=== PATIENT | male | born 1935 | race African-American/Black ===

== ENCOUNTER 2021-07-03 10:55 | Inpatient (IN) | payer MEDICARE, MEDICAID ==
[2021-07-03 11:43] LABS: #Monocytes 0.3 10x3/uL (0.0-1.1); #Neutrophils 4.8 10x3/uL (1.5-8.4); %Basophils 0.2 % (0.0-2.0); %Lymphocytes 6.3 % (18.0-47.0); %Monocytes 5.4 % (0.0-10.0); %Neutrophils 87.9 % (40.0-75.0); Hemoglobin 12.2 g/dL (13.5-17.5); Mean Corpuscular HGB CONC 33.3 g/dL (32.0-36.0); Mean Corpuscular Hemoglobin 31.6 pg (27.0-33.0); Mean Corpuscular Volume 94.8 fl (81.2-95.1); Mean Platelet Volume 9.6 fl (7.4-10.4); Platelet Count 215 10x3/uL (150-450); RBC Distribution Width 12.6 % (11.5-14.5); Red Blood Cell (RBC) Count 3.86 10x6/uL (4.32-5.72); White Blood Cell (WBC) Count 5.4 10x3/uL (3.5-10.5)
[2021-07-03 11:54] LABS: ALT (SGPT) 10 U/L (8-55); AST (SGOT) 31 U/L (5-34); Albumin 4.3 g/dL (3.4-4.8); Alkaline Phosphatase 77 U/L (40-110); Anion Gap 18 mmol/L (10-20); BUN (Urea Nitrogen) 42 mg/dL (8.4-25.7); Bilirubin, Total 0.9 mg/dL (0.2-1.2); CK (CPK) 781 U/L (30-200); Calc. Creatinine Clearance 0 mL/min (70-130); Calcium 9.9 mg/dL (7.8-10.44); Carbon Dioxide 24 mmol/L (23-31); Chloride 105 mmol/L (98-107); Globulin 4.2 g/dL (2.4-3.5); Glucose 86 mg/dL (83-110); Potassium 3.3 mmol/L (3.5-5.1); Protein, Total 8.5 g/dL (5.8-8.1); Sodium 144 mmol/L (136-145)
[2021-07-03 12:14] LABS: CKMB 23.7 ng/mL (0-6.6)
[2021-07-03] MEDS ORDERED: Aspirin Chewable 81 MG TAB ONE (13:13)
[2021-07-03] MEDS ORDERED: Aspirin 300 MG Suppository ONE (13:26)
[2021-07-03 13:43] LABS: Bilirubin Neg (Negative); Blood, Urine 150 (Negative); Clarity Clear (Clear); Glucose, Urine (Dipstick) Normal (Negative); Ketone, Urine Negative (Negative); Leukocyte 500 (Negative); Nitrite Negative (Negative); Protein, Urine (Dipstick) 30 mg/dl (Neg-Trace); Urobilinogen Normal mg/dL (Less than 2)
[2021-07-03 13:54] LABS: Squamous Epithelial 0-3 HPF (0-3)
[2021-07-03 13:55] LABS: Bacteria/HPF None Seen HPF (None Seen); RBC/HPF 0-3 HPF (0-3)
[2021-07-03] MEDS ORDERED: cefTRIAXone\\ROCEPHIN 2 GM VIAL ONE (14:34)
[2021-07-03 15:07] LABS: SARS-CoV-2 NAA Rapid Test Not Detected (NotDetected)
[2021-07-03] MEDS ORDERED: Acetaminophen 325 MG TAB PO PRN (15:29)
[2021-07-03] MEDS ORDERED: Ondansetron PF 4 MG/2 ML Vial IVP PRN (15:29)
[2021-07-03 15:33] VITALS: BMI 21.4
[2021-07-03] MEDS ORDERED: Electrolyte Replacement Protocol 1 EACH FS SCH (15:45)
[2021-07-03] MEDS ORDERED: Potassium Chloride 20 MEQ TAB PO SCH ×2 (16:00→22:00)
[2021-07-03 16:34] LABS: Troponin I 0.244 ng/mL (< 0.028)
[2021-07-03] MEDS: Sodium Chloride 0.9% 1,000 ML IV SCH (18:01)
[2021-07-03 21:41] LABS: Potassium 3.1 mmol/L (3.5-5.1)
[2021-07-04] MEDS: Sodium Chloride 0.9% 1,000 ML IV SCH ×2 (06:25→18:49)
[2021-07-04 07:19] LABS: #Monocytes 0.5 10x3/uL (0.0-1.1); #Neutrophils 2.9 10x3/uL (1.5-8.4); %Basophils 0.2 % (0.0-2.0); %Eosinophils 0.2 % (0.0-6.0); %Lymphocytes 21.6 % (18.0-47.0); %Neutrophils 66.5 % (40.0-75.0); Hemoglobin 9.5 g/dL (13.5-17.5); Mean Corpuscular HGB CONC 33.7 g/dL (32.0-36.0); Mean Corpuscular Hemoglobin 32.9 pg (27.0-33.0); Mean Corpuscular Volume 97.6 fl (81.2-95.1); Mean Platelet Volume 9.6 fl (7.4-10.4); Platelet Count 162 10x3/uL (150-450); RBC Distribution Width 13.4 % (11.5-14.5); Red Blood Cell (RBC) Count 2.89 10x6/uL (4.32-5.72); White Blood Cell (WBC) Count 4.4 10x3/uL (3.5-10.5)
[2021-07-04 07:39] LABS: Anion Gap 11 mmol/L (10-20); BUN (Urea Nitrogen) 28 mg/dL (8.4-25.7); Calc. Creatinine Clearance 35 mL/min (70-130); Calcium 8.5 mg/dL (7.8-10.44); Carbon Dioxide 25 mmol/L (23-31); Chloride 113 mmol/L (98-107); Glucose 94 mg/dL (83-110); Magnesium 1.8 mg/dL (1.6-2.6); Potassium 3.2 mmol/L (3.5-5.1); Sodium 146 mmol/L (136-145)
[2021-07-04 07:41] LABS: Phosphorus 2.4 mg/dL (2.3-4.7)
[2021-07-04] MEDS ORDERED: Enoxaparin Sodium 30 MG/0.3 ML SYRINGE SC SCH (09:00)
[2021-07-04] MEDS: Aspirin 81 mg Enteric Coated Tablet PO SCH (09:02)
[2021-07-04] MEDS: Potassium Chloride 20 MEQ TAB PO SCH (09:03)
[2021-07-04] MEDS: Amlodipine 10 MG TAB PO SCH (09:05)
[2021-07-04] MEDS: Docusate 100 MG CAP PO SCH ×3 (09:06→22:48)
[2021-07-04] MEDS: Dorzolamide HCl 2% Ophth Soln 10 ml Bottle EA EYE SCH ×3 (11:08→22:51)
[2021-07-04] MEDS ORDERED: Magnesium 2 GM/50 ML 2 GM in Premix Bag 1 BAG IVPB SCH ×2 (13:00→18:45)
[2021-07-04] MEDS ORDERED: Potassium Chloride 20 MEQ TAB PO SCH (13:00)
[2021-07-04] MEDS: Timolol 0.5% Ophth Soln 5 ml Bottle EA EYE SCH ×2 (17:27→22:50)
[2021-07-04] MEDS: cefTRIAXone\\ROCEPHIN 1 GM in Sodium Chloride 0.9% 100 ML IVPB SCH (17:27)
[2021-07-04] MEDS: Terazosin HCl 5 MG CAP PO SCH (22:48)
[2021-07-04] MEDS: Latanoprost 0.005% Ophth Soln 2.5 ml Bottle R EYE SCH (23:00)
[2021-07-05] MEDS: Sodium Chloride 0.9% 1,000 ML IV SCH ×2 (04:55→22:00)
[2021-07-05 05:29] LABS: #Monocytes 0.4 10x3/uL (0.0-1.1); #Neutrophils 1.8 10x3/uL (1.5-8.4); %Basophils 0.8 % (0.0-2.0); %Eosinophils 0.5 % (0.0-6.0); %Monocytes 10.7 % (0.0-10.0); %Neutrophils 45.7 % (40.0-75.0); Hemoglobin 9.8 g/dL (13.5-17.5); Mean Corpuscular HGB CONC 33.6 g/dL (32.0-36.0); Mean Corpuscular Hemoglobin 32.5 pg (27.0-33.0); Mean Corpuscular Volume 96.7 fl (81.2-95.1); Mean Platelet Volume 9.5 fl (7.4-10.4); Platelet Count 135 10x3/uL (150-450); RBC Distribution Width 13.8 % (11.5-14.5); Red Blood Cell (RBC) Count 3.02 10x6/uL (4.32-5.72); White Blood Cell (WBC) Count 3.9 10x3/uL (3.5-10.5)
[2021-07-05 05:41] LABS: Anion Gap 7 mmol/L (10-20); BUN (Urea Nitrogen) 19 mg/dL (8.4-25.7); Calc. Creatinine Clearance 44 mL/min (70-130); Calcium 8.3 mg/dL (7.8-10.44); Carbon Dioxide 24 mmol/L (23-31); Chloride 117 mmol/L (98-107); Glucose 78 mg/dL (83-110); Magnesium 2.1 mg/dL (1.6-2.6); Sodium 144 mmol/L (136-145)
[2021-07-05] MEDS: Aspirin 81 mg Enteric Coated Tablet PO SCH (08:03)
[2021-07-05] MEDS: Amlodipine 10 MG TAB PO SCH (08:03)
[2021-07-05] MEDS: Potassium Chloride 20 MEQ TAB PO SCH (08:03)
[2021-07-05] MEDS: Docusate 100 MG CAP PO SCH ×2 (08:05→22:30)
[2021-07-05] MEDS: Timolol 0.5% Ophth Soln 5 ml Bottle EA EYE SCH ×2 (08:39→23:05)
[2021-07-05] MEDS: Dorzolamide HCl 2% Ophth Soln 10 ml Bottle EA EYE SCH ×3 (08:39→23:10)
[2021-07-05] MEDS ORDERED: Enoxaparin Sodium 40 MG/0.4 ML SYRINGE SC SCH (09:00)
[2021-07-05] MEDS: cefTRIAXone\\ROCEPHIN 1 GM in Sodium Chloride 0.9% 100 ML IVPB SCH (13:19)
[2021-07-05] MEDS ORDERED: Brimonidine Tartrate 0.2% Ophth Soln 5 ml Bottle EA EYE SCH (14:00)
[2021-07-05] MEDS: Terazosin HCl 5 MG CAP PO SCH (22:30)
[2021-07-05] MEDS: Latanoprost 0.005% Ophth Soln 2.5 ml Bottle R EYE SCH (23:00)
[2021-07-06] MEDS: Dorzolamide HCl 2% Ophth Soln 10 ml Bottle EA EYE SCH (08:46)
[2021-07-06] MEDS: Aspirin 81 mg Enteric Coated Tablet PO SCH (08:47)
[2021-07-06] MEDS: Potassium Chloride 20 MEQ TAB PO SCH (08:47)
[2021-07-06] MEDS: Docusate 100 MG CAP PO SCH (08:47)
[2021-07-06] MEDS: Amlodipine 10 MG TAB PO SCH (08:48)
[2021-07-06] MEDS: Timolol 0.5% Ophth Soln 5 ml Bottle EA EYE SCH (08:49)
[2021-07-06 09:51] VITALS: BP 176/81; TEMP 98.3
[2021-07-06] MEDS: Sodium Chloride 0.9% 1,000 ML IV SCH (12:09)
[2021-07-06] MEDS ORDERED: Brimonidine Tartrate 0.2% Ophth Soln 5 ml Bottle EA EYE SCH (14:00)
== END 2021-07-06 12:50 | disposition home or self-care (01) | DRG 689 ==
LOC: CSHERS 10:55 → CSHTELE 14:47
PROVIDERS: ADMIT Internal Medicine; ATTEND Hospitalist
DX: N39.0 Urinary tract infection, site not specified (principal); G92.8 Other toxic encephalopathy; E87.0 Hyperosmolality and hypernatremia; I10 Essential (primary) hypertension; Z20.822 Contact with and (suspected) exposure to COVID-19; N40.0 Benign prostatic hyperplasia without lower urinary tract symptoms; M19.90 Unspecified osteoarthritis, unspecified site; T68.XXXA Hypothermia, initial encounter; R77.8 Other specified abnormalities of plasma proteins; E87.6 Hypokalemia; E83.42 Hypomagnesemia; X31.XXXA Exposure to excessive natural cold, initial encounter
CPT/HCPCS: 36415; 70450; 71045; 80048; 80053; 81003; 81015; 82550; 82553; 83605; 83735; 84100; 84484; 85025; 87040; 87086; 93005; 93010; 94760; 96374; J0696; J1650; J3475; J3490; J7050; U0002

== ENCOUNTER 2021-11-08 13:41 | Emergency (ER) | payer MEDICARE, MEDICAID ==
[2021-11-08 15:12] LABS: #Eosinphils 0.1 10x3/uL (0.0-0.5); #Monocytes 0.4 10x3/uL (0.0-1.1); #Neutrophils 1.7 10x3/uL (1.5-8.4); %Basophils 0.8 % (0.0-2.0); %Eosinophils 2.3 % (0.0-6.0); %Lymphocytes 41.9 % (18.0-47.0); %Monocytes 10.1 % (0.0-10.0); %Neutrophils 44.6 % (40.0-75.0); Hemoglobin 10.4 g/dL (13.5-17.5); Mean Corpuscular Hemoglobin 33.1 pg (27.0-33.0); Mean Corpuscular Volume 97.5 fl (81.2-95.1); Mean Platelet Volume 9.8 fl (7.4-10.4); Platelet Count 186 10x3/uL (150-450); RBC Distribution Width 12.9 % (11.5-14.5); Red Blood Cell (RBC) Count 3.14 10x6/uL (4.32-5.72); White Blood Cell (WBC) Count 3.9 10x3/uL (3.5-10.5)
[2021-11-08 15:27] LABS: ALT (SGPT) 12 U/L (8-55); AST (SGOT) 19 U/L (5-34); Albumin 3.7 g/dL (3.4-4.8); Alkaline Phosphatase 61 U/L (40-110); Anion Gap 12 mmol/L (10-20); BUN (Urea Nitrogen) 8 mg/dL (8.4-25.7); Bilirubin, Total 0.7 mg/dL (0.2-1.2); Calc. Creatinine Clearance 0 mL/min (70-130); Carbon Dioxide 26 mmol/L (23-31); Chloride 106 mmol/L (98-107); Globulin 3.6 g/dL (2.4-3.5); Glucose 103 mg/dL (83-110); Potassium 3.5 mmol/L (3.5-5.1); Protein, Total 7.3 g/dL (5.8-8.1); Sodium 140 mmol/L (136-145)
== END 2021-11-08 17:41 | disposition home or self-care (01) ==
LOC: CSHERS 13:41
DX: R60.0 Localized edema (principal); I10 Essential (primary) hypertension; Z79.899 Other long term (current) drug therapy
CPT/HCPCS: 80053; 83880; 85025; 99284

== ENCOUNTER 2022-01-02 18:47 | Inpatient (IN) | payer MEDICARE, MEDICAID ==
[2022-01-02 19:48] LABS: #Monocytes 0.4 10x3/uL (0.0-1.1); #Neutrophils 1.5 10x3/uL (1.5-8.4); %Basophils 0.7 % (0.0-2.0); %Eosinophils 1.4 % (0.0-6.0); %Lymphocytes 32.7 % (18.0-47.0); %Monocytes 12.3 % (0.0-10.0); %Neutrophils 52.5 % (40.0-75.0); Mean Corpuscular HGB CONC 35.6 g/dL (32.0-36.0); Mean Corpuscular Hemoglobin 33.2 pg (27.0-33.0); Mean Corpuscular Volume 93.4 fl (81.2-95.1); Platelet Count 181 10x3/uL (150-450); RBC Distribution Width 13.3 % (11.5-14.5); Red Blood Cell (RBC) Count 3.61 10x6/uL (4.32-5.72); White Blood Cell (WBC) Count 2.8 10x3/uL (3.5-10.5)
[2022-01-02 19:56] LABS: ALT (SGPT) 12 U/L (8-55); AST (SGOT) 27 U/L (5-34); Albumin 3.9 g/dL (3.4-4.8); Alkaline Phosphatase 45 U/L (40-110); Anion Gap 17 mmol/L (10-20); BUN (Urea Nitrogen) 45 mg/dL (8.4-25.7); Bilirubin, Total 1.7 mg/dL (0.2-1.2); Calc. Creatinine Clearance 0 mL/min (70-130); Calcium 10.2 mg/dL (7.8-10.44); Carbon Dioxide 23 mmol/L (23-31); Chloride 102 mmol/L (98-107); Estimated GFR 21; Globulin 3.8 g/dL (2.4-3.5); Glucose 113 mg/dL (83-110); Lipase 29 U/L (8-78); Magnesium 2.2 mg/dL (1.6-2.6); Potassium 3.5 mmol/L (3.5-5.1); Protein, Total 7.7 g/dL (5.8-8.1); Sodium 138 mmol/L (136-145)
[2022-01-02 20:18] LABS: CKMB 2.7 ng/mL (0-6.6)
[2022-01-02] MEDS ORDERED: Atropine Sulfate 1 mg/10 ml Syringe ONE (20:54)
[2022-01-02] MEDS ORDERED: Aspirin Chewable 81 MG TAB ONE (20:54)
[2022-01-02] MEDS ORDERED: cefTRIAXone\\ROCEPHIN 2 GM VIAL ONE (20:54)
[2022-01-02] MEDS ORDERED: Calcium Carbonate 500 MG ChewTAB PO PRN (21:33)
[2022-01-02] MEDS ORDERED: Acetaminophen 325 MG TAB PO PRN (21:33)
[2022-01-02] MEDS ORDERED: Senokot S 8.6-50 MG TAB PO PRN (21:33)
[2022-01-02] MEDS ORDERED: Ondansetron PF 4 MG/2 ML Vial IVP PRN (21:33)
[2022-01-02] MEDS ORDERED: Tamsulosin HCl 0.4 MG CAP PO SCH (21:45)
[2022-01-02] MEDS ORDERED: Lactated Ringer's 500 ML IV SCH (21:45)
[2022-01-02 22:06] LABS: SARS-CoV-2 NAA Rapid Test Not Detected (NotDetected)
[2022-01-02] MEDS ORDERED: Enoxaparin Sodium 60 MG/0.6 ML SYRINGE SC SCH (23:45)
[2022-01-02] MEDS ORDERED: Enoxaparin Sodium 60 MG/0.6 ML SYRINGE ONE (23:50)
[2022-01-02] MEDS ORDERED: Tamsulosin HCl 0.4 MG CAP ONE (23:52)
[2022-01-03] MEDS: Brimonidine Tartrate 0.2% Ophth Soln 5 ml Bottle EA EYE SCH ×4 (00:16→21:52)
[2022-01-03] MEDS ORDERED: Atropine Sulfate 1 mg/10 ml Syringe ONE (02:05)
[2022-01-03 03:30] LABS: #Eosinphils 0.1 10x3/uL (0.0-0.5); #Monocytes 0.5 10x3/uL (0.0-1.1); #Neutrophils 1.7 10x3/uL (1.5-8.4); %Basophils 0.8 % (0.0-2.0); %Eosinophils 1.5 % (0.0-6.0); %Lymphocytes 40.4 % (18.0-47.0); %Monocytes 12.6 % (0.0-10.0); %Neutrophils 44.4 % (40.0-75.0); Hemoglobin 11.4 g/dL (13.5-17.5); Mean Corpuscular HGB CONC 34.9 g/dL (32.0-36.0); Mean Corpuscular Hemoglobin 33.1 pg (27.0-33.0); Mean Corpuscular Volume 95.1 fl (81.2-95.1); Platelet Count 162 10x3/uL (150-450); RBC Distribution Width 13.5 % (11.5-14.5); Red Blood Cell (RBC) Count 3.44 10x6/uL (4.32-5.72); White Blood Cell (WBC) Count 3.9 10x3/uL (3.5-10.5)
[2022-01-03 03:46] LABS: Anion Gap 12 mmol/L (10-20); BUN (Urea Nitrogen) 40 mg/dL (8.4-25.7); Calc. Creatinine Clearance 0 mL/min (70-130); Calcium 9.4 mg/dL (7.8-10.44); Carbon Dioxide 25 mmol/L (23-31); Cardiac Risk 3.7 (Less than 4.5); Chloride 107 mmol/L (98-107); Cholesterol 143 mg/dl (< 200 Desired); Estimated GFR 28; Glucose 88 mg/dL (83-110); HDL Cholesterol 39 mg/dL (>60 Neg Risk); LDL Cholesterol, Calculated 91 mg/dL; Magnesium 2.1 mg/dL (1.6-2.6); Potassium 3.3 mmol/L (3.5-5.1); Sodium 141 mmol/L (136-145)
[2022-01-03 04:06] LABS: Free T4 (Free Thyroxine) 0.85 ng/dL (0.70-1.48); Thyroid Stimulating Hormone 1.9846 uIU/mL (0.35-4.94)
[2022-01-03 04:14] LABS: CKMB 5.9 ng/mL (0-6.6)
[2022-01-03] MEDS ORDERED: Potassium Chloride 20 MEQ TAB PO SCH (04:15)
[2022-01-03 04:23] LABS: Triglycerides 64 mg/dL (Less than 150)
[2022-01-03] MEDS ORDERED: Potassium Chloride 20 MEQ TAB ONE (04:29)
[2022-01-03] MEDS ORDERED: Lorazepam 0.5 MG TAB ONE (05:09)
[2022-01-03] MEDS ORDERED: Lorazepam 2 MG/ML VIAL ONE (05:11)
[2022-01-03] MEDS: Amlodipine 10 MG TAB PO SCH (09:30)
[2022-01-03] MEDS: Famotidine 20 MG TAB PO SCH (09:30)
[2022-01-03] MEDS: cefTRIAXone\\ROCEPHIN 1 GM in Sodium Chloride 0.9% 100 ML IVPB SCH (09:30)
[2022-01-03] MEDS: Docusate 100 MG CAP PO SCH ×2 (09:30→20:31)
[2022-01-03] MEDS: Aspirin 81 mg Enteric Coated Tablet PO SCH (09:30)
[2022-01-03] MEDS ORDERED: Aspirin Chewable 81 MG TAB ONE (09:33)
[2022-01-03] MEDS ORDERED: Amlodipine 5 MG TAB ONE (09:33)
[2022-01-03] MEDS ORDERED: cefTRIAXone\\ROCEPHIN 1 GM VIAL ONE (09:34)
[2022-01-03] MEDS ORDERED: Famotidine 20 MG TAB ONE (09:39)
[2022-01-03] MEDS: Dorzolamide HCl 2% Ophth Soln 10 ml Bottle EA EYE SCH ×3 (09:50→20:31)
[2022-01-03] MEDS: Lactated Ringer's 1,000 ML IV SCH ×2 (10:10→21:52)
[2022-01-03] MEDS: Multivitamin W/ Minerals 1 TAB PO SCH (10:32)
[2022-01-03 15:46] VITALS: BMI 17.9
[2022-01-03] MEDS: Terazosin HCl 5 MG CAP PO SCH (20:32)
[2022-01-03] MEDS: Tamsulosin HCl 0.4 MG CAP PO SCH (20:32)
[2022-01-03] MEDS: Enoxaparin Sodium 60 MG/0.6 ML SYRINGE SC SCH (20:39)
[2022-01-03] MEDS: Latanoprost 0.005% Ophth Soln 2.5 ml Bottle R EYE SCH (20:43)
[2022-01-04] MEDS: Brimonidine Tartrate 0.2% Ophth Soln 5 ml Bottle EA EYE SCH ×3 (05:55→21:43)
[2022-01-04 08:49] LABS: Hemoglobin 12.2 g/dL (13.5-17.5); Mean Corpuscular HGB CONC 34.5 g/dL (32.0-36.0); Mean Corpuscular Hemoglobin 33.5 pg (27.0-33.0); Mean Corpuscular Volume 97.3 fl (81.2-95.1); Platelet Count 163 10x3/uL (150-450); RBC Distribution Width 13.2 % (11.5-14.5); Red Blood Cell (RBC) Count 3.64 10x6/uL (4.32-5.72)
[2022-01-04 08:56] LABS: Anion Gap 14 mmol/L (10-20); BUN (Urea Nitrogen) 29 mg/dL (8.4-25.7); Calc. Creatinine Clearance 25 mL/min (70-130); Calcium 9.7 mg/dL (7.8-10.44); Carbon Dioxide 23 mmol/L (23-31); Chloride 110 mmol/L (98-107); Estimated GFR 47; Glucose 82 mg/dL (83-110); Potassium 3.5 mmol/L (3.5-5.1); Sodium 143 mmol/L (136-145)
[2022-01-04] MEDS: Dorzolamide HCl 2% Ophth Soln 10 ml Bottle EA EYE SCH ×3 (09:01→21:43)
[2022-01-04] MEDS: cefTRIAXone\\ROCEPHIN 1 GM in Sodium Chloride 0.9% 100 ML IVPB SCH (09:01)
[2022-01-04] MEDS: Docusate 100 MG CAP PO SCH ×3 (09:02→21:39)
[2022-01-04] MEDS: Multivitamin W/ Minerals 1 TAB PO SCH ×2 (09:02→09:32)
[2022-01-04] MEDS: Aspirin 81 mg Enteric Coated Tablet PO SCH ×2 (09:02→09:32)
[2022-01-04] MEDS: Famotidine 20 MG TAB PO SCH ×2 (09:02→09:32)
[2022-01-04] MEDS: Amlodipine 10 MG TAB PO SCH (09:03)
[2022-01-04 16:02] LABS: Bilirubin Neg (Negative); Blood, Urine 250 (Negative); Clarity Clear (Clear); Glucose, Urine (Dipstick) Normal (Negative); Ketone, Urine Negative (Negative); Leukocyte 500 (Negative); Nitrite Negative (Negative); Protein, Urine (Dipstick) 15 mg/dl (Neg-Trace); Urobilinogen Normal mg/dL (Less than 2)
[2022-01-04 16:09] LABS: Urine Culture Reflex No No
[2022-01-04] MEDS: Lactated Ringer's 1,000 ML IV SCH (16:10)
[2022-01-04 16:15] LABS: Bacteria/HPF 1+ HPF (None Seen); RBC/HPF 21-50 HPF (0-3); Squamous Epithelial 0-3 HPF (0-3); WBC/HPF 21-50 HPF (0-3)
[2022-01-04] MEDS: Tamsulosin HCl 0.4 MG CAP PO SCH (21:39)
[2022-01-04] MEDS: Terazosin HCl 5 MG CAP PO SCH (21:40)
[2022-01-04] MEDS: hydrALAZINE 20 MG/ML VIAL SLOW IVP PRN (21:43)
[2022-01-04] MEDS: Latanoprost 0.005% Ophth Soln 2.5 ml Bottle R EYE SCH (21:43)
[2022-01-04] MEDS: Enoxaparin Sodium 60 MG/0.6 ML SYRINGE SC SCH (21:44)
[2022-01-05] MEDS: Lactated Ringer's 1,000 ML IV SCH ×2 (02:10→17:21)
[2022-01-05] MEDS: Brimonidine Tartrate 0.2% Ophth Soln 5 ml Bottle EA EYE SCH ×3 (06:00→22:31)
[2022-01-05 09:20] LABS: #Monocytes 0.5 10x3/uL (0.0-1.1); #Neutrophils 3.9 10x3/uL (1.5-8.4); %Basophils 0.4 % (0.0-2.0); %Eosinophils 0.4 % (0.0-6.0); %Lymphocytes 12.1 % (18.0-47.0); %Monocytes 9.1 % (0.0-10.0); %Neutrophils 77.8 % (40.0-75.0); Hemoglobin 12.6 g/dL (13.5-17.5); Mean Corpuscular HGB CONC 34.9 g/dL (32.0-36.0); Mean Corpuscular Hemoglobin 32.7 pg (27.0-33.0); Mean Corpuscular Volume 93.8 fl (81.2-95.1); Mean Platelet Volume 9.9 fl (7.4-10.4); Platelet Count 178 10x3/uL (150-450); RBC Distribution Width 13.5 % (11.5-14.5); Red Blood Cell (RBC) Count 3.85 10x6/uL (4.32-5.72); White Blood Cell (WBC) Count 5.1 10x3/uL (3.5-10.5)
[2022-01-05 10:01] LABS: Anion Gap 14 mmol/L (10-20); BUN (Urea Nitrogen) 22 mg/dL (8.4-25.7); Calc. Creatinine Clearance 32 mL/min (70-130); Calcium 10.1 mg/dL (7.8-10.44); Carbon Dioxide 24 mmol/L (23-31); Chloride 110 mmol/L (98-107); Estimated GFR 61; Glucose 86 mg/dL (83-110); Potassium 3.3 mmol/L (3.5-5.1); Sodium 145 mmol/L (136-145)
[2022-01-05] MEDS: cefTRIAXone\\ROCEPHIN 1 GM in Sodium Chloride 0.9% 100 ML IVPB SCH (10:04)
[2022-01-05] MEDS: Multivitamin W/ Minerals 1 TAB PO SCH (10:06)
[2022-01-05] MEDS: Docusate 100 MG CAP PO SCH ×2 (10:06→22:38)
[2022-01-05] MEDS: Dorzolamide HCl 2% Ophth Soln 10 ml Bottle EA EYE SCH ×3 (10:06→22:31)
[2022-01-05] MEDS: Famotidine 20 MG TAB PO SCH (10:06)
[2022-01-05] MEDS: Amlodipine 10 MG TAB PO SCH (10:07)
[2022-01-05] MEDS: Aspirin 81 mg Enteric Coated Tablet PO SCH (10:07)
[2022-01-05] MEDS ORDERED: Potassium Chloride 20 MEQ in Premix Bag 1 BAG IVPB SCH (12:00)
[2022-01-05] MEDS: hydrALAZINE 20 MG/ML VIAL SLOW IVP PRN (17:19)
[2022-01-05] MEDS: Enoxaparin Sodium 60 MG/0.6 ML SYRINGE SC SCH (22:30)
[2022-01-05] MEDS: Latanoprost 0.005% Ophth Soln 2.5 ml Bottle R EYE SCH (22:31)
[2022-01-05] MEDS: Tamsulosin HCl 0.4 MG CAP PO SCH (22:38)
[2022-01-05] MEDS: Terazosin HCl 5 MG CAP PO SCH (22:39)
[2022-01-06] MEDS: Lactated Ringer's 1,000 ML IV SCH ×2 (03:30→19:04)
[2022-01-06 05:14] LABS: #Monocytes 0.7 10x3/uL (0.0-1.1); #Neutrophils 4.3 10x3/uL (1.5-8.4); %Basophils 0.5 % (0.0-2.0); %Eosinophils 0.5 % (0.0-6.0); %Lymphocytes 23.3 % (18.0-47.0); %Monocytes 10.1 % (0.0-10.0); %Neutrophils 65.3 % (40.0-75.0); Hemoglobin 13.1 g/dL (13.5-17.5); Mean Corpuscular HGB CONC 34.7 g/dL (32.0-36.0); Mean Corpuscular Hemoglobin 33.8 pg (27.0-33.0); Mean Corpuscular Volume 97.2 fl (81.2-95.1); Mean Platelet Volume 9.9 fl (7.4-10.4); Platelet Count 159 10x3/uL (150-450); RBC Distribution Width 13.6 % (11.5-14.5); Red Blood Cell (RBC) Count 3.88 10x6/uL (4.32-5.72); White Blood Cell (WBC) Count 6.5 10x3/uL (3.5-10.5)
[2022-01-06 05:19] LABS: Anion Gap 18 mmol/L (10-20); BUN (Urea Nitrogen) 22 mg/dL (8.4-25.7); Calc. Creatinine Clearance 29 mL/min (70-130); Calcium 10.7 mg/dL (7.8-10.44); Carbon Dioxide 23 mmol/L (23-31); Chloride 112 mmol/L (98-107); Estimated GFR 56; Glucose 89 mg/dL (83-110); Potassium 4.6 mmol/L (3.5-5.1); Sodium 148 mmol/L (136-145)
[2022-01-06] MEDS ORDERED: Dextrose 50% Abboject 50 ML SYRINGE SLOW IVP PRN (05:28)
[2022-01-06] MEDS: hydrALAZINE 20 MG/ML VIAL SLOW IVP PRN (06:03)
[2022-01-06] MEDS: Thiamine HCl 200 MG/2 ML VIAL SLOW IVP SCH (06:03)
[2022-01-06] MEDS: Brimonidine Tartrate 0.2% Ophth Soln 5 ml Bottle EA EYE SCH ×3 (06:24→22:25)
[2022-01-06] MEDS: cefTRIAXone\\ROCEPHIN 1 GM in Sodium Chloride 0.9% 100 ML IVPB SCH (10:36)
[2022-01-06] MEDS: Aspirin 81 mg Enteric Coated Tablet PO SCH (10:36)
[2022-01-06] MEDS: Docusate 100 MG CAP PO SCH ×2 (10:36→22:23)
[2022-01-06] MEDS: Enalaprilat Dihydrate 1.25 MG/ML VIAL SLOW IVP SCH ×3 (10:38→22:23)
[2022-01-06] MEDS: Amlodipine 10 MG TAB PO SCH (10:39)
[2022-01-06] MEDS: Dorzolamide HCl 2% Ophth Soln 10 ml Bottle EA EYE SCH ×3 (10:39→22:26)
[2022-01-06] MEDS: Enoxaparin Sodium 60 MG/0.6 ML SYRINGE SC SCH ×2 (10:40→22:26)
[2022-01-06] MEDS: Multivitamin W/ Minerals 1 TAB PO SCH (11:30)
[2022-01-06] MEDS: Famotidine 20 MG TAB PO SCH (11:30)
[2022-01-06] MEDS: Tamsulosin HCl 0.4 MG CAP PO SCH (22:23)
[2022-01-06] MEDS: Terazosin HCl 5 MG CAP PO SCH (22:24)
[2022-01-06] MEDS: Latanoprost 0.005% Ophth Soln 2.5 ml Bottle R EYE SCH (22:25)
[2022-01-07] MEDS: Enalaprilat Dihydrate 1.25 MG/ML VIAL SLOW IVP SCH ×2 (03:33→10:23)
[2022-01-07 05:04] LABS: #Monocytes 0.4 10x3/uL (0.0-1.1); #Neutrophils 2.5 10x3/uL (1.5-8.4); %Basophils 0.3 % (0.0-2.0); %Lymphocytes 25.3 % (18.0-47.0); %Monocytes 9.4 % (0.0-10.0); %Neutrophils 63.7 % (40.0-75.0); Hemoglobin 11.2 g/dL (13.5-17.5); Mean Corpuscular HGB CONC 34.5 g/dL (32.0-36.0); Mean Corpuscular Hemoglobin 33.1 pg (27.0-33.0); Mean Corpuscular Volume 96.2 fl (81.2-95.1); Mean Platelet Volume 10.2 fl (7.4-10.4); Platelet Count 129 10x3/uL (150-450); RBC Distribution Width 13.3 % (11.5-14.5); Red Blood Cell (RBC) Count 3.38 10x6/uL (4.32-5.72); White Blood Cell (WBC) Count 3.8 10x3/uL (3.5-10.5)
[2022-01-07 05:07] LABS: Anion Gap 15 mmol/L (10-20); BUN (Urea Nitrogen) 23 mg/dL (8.4-25.7); Calc. Creatinine Clearance 35 mL/min (70-130); Calcium 9.7 mg/dL (7.8-10.44); Carbon Dioxide 21 mmol/L (23-31); Chloride 113 mmol/L (98-107); Estimated GFR 68; Glucose 87 mg/dL (83-110); Potassium 3.5 mmol/L (3.5-5.1); Sodium 145 mmol/L (136-145)
[2022-01-07] MEDS: Lactated Ringer's 1,000 ML IV SCH (06:20)
[2022-01-07] MEDS: Brimonidine Tartrate 0.2% Ophth Soln 5 ml Bottle EA EYE SCH (06:20)
[2022-01-07] MEDS: Thiamine HCl 200 MG/2 ML VIAL SLOW IVP SCH (06:20)
[2022-01-07] MEDS: cefTRIAXone\\ROCEPHIN 1 GM in Sodium Chloride 0.9% 100 ML IVPB SCH (10:07)
[2022-01-07] MEDS: Enoxaparin Sodium 60 MG/0.6 ML SYRINGE SC SCH (10:08)
[2022-01-07] MEDS: Aspirin 81 mg Enteric Coated Tablet PO SCH ×2 (10:18→10:54)
[2022-01-07] MEDS: Multivitamin W/ Minerals 1 TAB PO SCH (10:18)
[2022-01-07] MEDS: Docusate 100 MG CAP PO SCH (10:18)
[2022-01-07] MEDS: Famotidine 20 MG TAB PO SCH (10:19)
[2022-01-07] MEDS: Dorzolamide HCl 2% Ophth Soln 10 ml Bottle EA EYE SCH (10:21)
[2022-01-07] MEDS ORDERED: Aspirin Chewable 81 MG TAB PO SCH (11:00)
[2022-01-07 13:46] VITALS: BP 148/67; TEMP 98.6
[2022-01-08] MEDS ORDERED: Aspirin Chewable 81 MG TAB PO SCH (09:00)
== END 2022-01-07 13:46 | DRG 871 ==
LOC: CSHERS 18:47 → CSHERHOLD 23:19 → CSHIMCU 01-03 14:31 → CSHTELE 01-04 11:37
PROVIDERS: ADMIT Student in an Organized Health Care Education/Training Program; ATTEND Internal Medicine
DX: A41.9 Sepsis, unspecified organism (principal); G93.41 Metabolic encephalopathy; I21.A1 Myocardial infarction type 2; N39.0 Urinary tract infection, site not specified; R64 Cachexia; N17.9 Acute kidney failure, unspecified; E44.0 Moderate protein-calorie malnutrition; Z68.1 Body mass index [BMI] 19.9 or less, adult; Z66 Do not resuscitate; Z20.822 Contact with and (suspected) exposure to COVID-19; I44.0 Atrioventricular block, first degree; N40.0 Benign prostatic hyperplasia without lower urinary tract symptoms; M19.90 Unspecified osteoarthritis, unspecified site; D53.9 Nutritional anemia, unspecified; E86.0 Dehydration; H40.9 Unspecified glaucoma; R68.0 Hypothermia, not associated with low environmental temperature; F01.50 Vascular dementia, unspecified severity, without behavioral disturbance, psychotic disturbance, mood disturbance, and anxiety; E87.6 Hypokalemia; I25.10 Atherosclerotic heart disease of native coronary artery without angina pectoris; N18.9 Chronic kidney disease, unspecified; R13.10 Dysphagia, unspecified; I12.9 Hypertensive chronic kidney disease with stage 1 through stage 4 chronic kidney disease, or unspecified chronic kidney disease; Z79.899 Other long term (current) drug therapy; R62.7 Adult failure to thrive
CPT/HCPCS: 36415; 36416; 70450; 71045; 74176; 76770; 80048; 80053; 80061; 81001; 82553; 82607; 83690; 83735; 83880; 84439; 84443; 84484; 85025; 85027; 87086; 93005; 93306; 94760; 96361; 96365; 96375; 96376; J0360; J0461; J0696; J1650; J2060; J3411; J3480; J3490; J7120; J7999; U0002

== ENCOUNTER 2022-02-24 15:53 | Emergency (ER) | payer MEDICARE, MEDICAID ==
[2022-02-24 17:22] LABS: #Eosinphils 0.1 10x3/uL (0.0-0.5); #Monocytes 0.7 10x3/uL (0.0-1.1); %Basophils 0.6 % (0.0-2.0); %Eosinophils 1.8 % (0.0-6.0); %Monocytes 9.8 % (0.0-10.0); %Neutrophils 59.2 % (40.0-75.0); Hemoglobin 10.5 g/dL (13.5-17.5); Mean Corpuscular HGB CONC 33.2 g/dL (32.0-36.0); Mean Corpuscular Hemoglobin 33.1 pg (27.0-33.0); Mean Corpuscular Volume 99.7 fl (81.2-95.1); Mean Platelet Volume 9.2 fl (7.4-10.4); Platelet Count 194 10x3/uL (150-450); RBC Distribution Width 14.6 % (11.5-14.5); Red Blood Cell (RBC) Count 3.17 10x6/uL (4.32-5.72); White Blood Cell (WBC) Count 6.7 10x3/uL (3.5-10.5)
[2022-02-24 17:40] LABS: ALT (SGPT) 23 U/L (8-55); AST (SGOT) 39 U/L (5-34); Albumin 3.7 g/dL (3.4-4.8); Alkaline Phosphatase 83 U/L (40-110); Anion Gap 12 mmol/L (10-20); BUN (Urea Nitrogen) 21 mg/dL (8.4-25.7); Bilirubin, Total 0.5 mg/dL (0.2-1.2); Calc. Creatinine Clearance 0 mL/min (70-130); Calcium 9.1 mg/dL (7.8-10.44); Carbon Dioxide 30 mmol/L (23-31); Chloride 107 mmol/L (98-107); Estimated GFR 72; Globulin 3.5 g/dL (2.4-3.5); Glucose 85 mg/dL (83-110); Potassium 3.2 mmol/L (3.5-5.1); Protein, Total 7.2 g/dL (5.8-8.1); Sodium 146 mmol/L (136-145)
[2022-02-24] MEDS ORDERED: Potassium Chloride 20 MEQ TAB ONE (19:23)
[2022-02-24] MEDS ORDERED: Haloperidol Lactate 5 MG/ML VIAL ONE (19:23)
== END 2022-02-24 20:48 ==
LOC: CSHERS 15:53
DX: F03.90 Unspecified dementia, unspecified severity, without behavioral disturbance, psychotic disturbance, mood disturbance, and anxiety (principal); I10 Essential (primary) hypertension
CPT/HCPCS: 36415; 80053; 85025; 93005; 93010; 96372; 99285; J1630

== ENCOUNTER 2022-03-14 06:51 | Inpatient (IN) | payer MEDICARE, MEDICAID ==
[2022-03-14] MEDS ORDERED: Ziprasidone 20 MG VIAL ONE (07:20)
[2022-03-14] MEDS ORDERED: Sterile Water 10 ML ONE (07:20)
[2022-03-14] MEDS ORDERED: Diazepam 10 MG/2 ML SYRINGE ONE (07:21)
[2022-03-14 07:43] LABS: #Eosinphils 0.1 10x3/uL (0.0-0.5); #Monocytes 0.8 10x3/uL (0.0-1.1); #Neutrophils 3.7 10x3/uL (1.5-8.4); %Basophils 0.4 % (0.0-2.0); %Eosinophils 1.2 % (0.0-6.0); %Lymphocytes 39.2 % (18.0-47.0); %Monocytes 10.7 % (0.0-10.0); %Neutrophils 48.2 % (40.0-75.0); Hemoglobin 10.7 g/dL (13.5-17.5); Mean Corpuscular HGB CONC 33.1 g/dL (32.0-36.0); Mean Corpuscular Hemoglobin 33.2 pg (27.0-33.0); Mean Corpuscular Volume 100.3 fl (81.2-95.1); Mean Platelet Volume 10.2 fl (7.4-10.4); Platelet Count 246 10x3/uL (150-450); RBC Distribution Width 14.4 % (11.5-14.5); Red Blood Cell (RBC) Count 3.22 10x6/uL (4.32-5.72); White Blood Cell (WBC) Count 7.6 10x3/uL (3.5-10.5)
[2022-03-14 08:07] LABS: ALT (SGPT) 35 U/L (8-55); AST (SGOT) 52 U/L (5-34); Acetaminophen Less than 10.0 mcg/mL (10.0-30.0); Albumin 3.9 g/dL (3.4-4.8); Alcohol Less than 10 mg/dL (Less than 10); Alkaline Phosphatase 81 U/L (40-110); Anion Gap 16 mmol/L (10-20); BUN (Urea Nitrogen) 41 mg/dL (8.4-25.7); CK (CPK) 166 U/L (30-200); Calc. Creatinine Clearance 0 mL/min (70-130); Calcium 9.9 mg/dL (7.8-10.44); Carbon Dioxide 26 mmol/L (23-31); Chloride 107 mmol/L (98-107); Estimated GFR 45; Globulin 4.3 g/dL (2.4-3.5); Glucose 129 mg/dL (83-110); Potassium 4.5 mmol/L (3.5-5.1); Protein, Total 8.2 g/dL (5.8-8.1); Sodium 144 mmol/L (136-145)
[2022-03-14 08:16] LABS: Bilirubin, Total 0.6 mg/dL (0.2-1.2); Salicylate Less than 8.0 mg/dL (15.0-30.0)
[2022-03-14 08:19] LABS: CKMB 5.2 ng/mL (0-6.6)
[2022-03-14] MEDS ORDERED: Ondansetron PF 4 MG/2 ML Vial IVP PRN (09:22)
[2022-03-14] MEDS ORDERED: Acetaminophen 650 MG Suppository PR PRN (09:22)
[2022-03-14] MEDS ORDERED: Aspirin Chewable 81 MG TAB ONE (09:43)
[2022-03-14 09:59] LABS: Troponin I 0.268 ng/mL (< 0.028)
[2022-03-14 10:18] LABS: Magnesium 2.1 mg/dL (1.6-2.6)
[2022-03-14 14:17] LABS: Troponin I 0.267 ng/mL (< 0.028)
[2022-03-14] MEDS ORDERED: diphenhydrAMINE 50 MG in Sodium Chloride 0.9% 50 ML IVPB SCH (16:45)
[2022-03-14] MEDS: Lorazepam 2 MG/ML VIAL SLOW IVP PRN (19:34)
[2022-03-14] MEDS: Atorvastatin Calcium 40 MG TAB PO SCH (19:34)
[2022-03-14] MEDS ORDERED: ceFAZolin (BATCH) 2 GM in Premix Bag 1 BAG IVPB SCH (22:00)
[2022-03-15] MEDS: Lorazepam 2 MG/ML VIAL SLOW IVP PRN ×2 (00:39→20:01)
[2022-03-15 01:21] LABS: SARS-CoV-2 NAA Rapid Test DETECTED (NotDetected)
[2022-03-15 04:25] LABS: #Eosinphils 0.1 10x3/uL (0.0-0.5); #Monocytes 0.5 10x3/uL (0.0-1.1); #Neutrophils 2.3 10x3/uL (1.5-8.4); %Basophils 0.5 % (0.0-2.0); %Eosinophils 2.9 % (0.0-6.0); %Lymphocytes 29.7 % (18.0-47.0); %Monocytes 12.4 % (0.0-10.0); Mean Corpuscular HGB CONC 33.1 g/dL (32.0-36.0); Mean Corpuscular Hemoglobin 32.4 pg (27.0-33.0); Mean Corpuscular Volume 97.6 fl (81.2-95.1); Mean Platelet Volume 10.5 fl (7.4-10.4); Platelet Count 197 10x3/uL (150-450); RBC Distribution Width 13.9 % (11.5-14.5); White Blood Cell (WBC) Count 4.2 10x3/uL (3.5-10.5)
[2022-03-15 04:58] LABS: ALT (SGPT) 27 U/L (8-55); AST (SGOT) 43 U/L (5-34); Alkaline Phosphatase 75 U/L (40-110); Anion Gap 13 mmol/L (10-20); BUN (Urea Nitrogen) 28 mg/dL (8.4-25.7); Bilirubin, Total 0.6 mg/dL (0.2-1.2); Calc. Creatinine Clearance 51 mL/min (70-130); Calcium 9.2 mg/dL (7.8-10.44); Carbon Dioxide 24 mmol/L (23-31); Cardiac Risk 3.2 (Less than 4.5); Chloride 111 mmol/L (98-107); Cholesterol 181 mg/dl (< 200 Desired); Estimated GFR 82; Globulin 3.7 g/dL (2.4-3.5); Glucose 78 mg/dL (83-110); HDL Cholesterol 57 mg/dL (>60 Neg Risk); LDL Cholesterol, Calculated 111 mg/dL; Potassium 3.9 mmol/L (3.5-5.1); Protein, Total 6.7 g/dL (5.8-8.1); Sodium 144 mmol/L (136-145); Triglycerides 67 mg/dL (Less than 150)
[2022-03-15] MEDS: Amlodipine 5 MG TAB PO SCH (08:08)
[2022-03-15] MEDS: Aspirin Chewable 81 MG TAB PO SCH (08:08)
[2022-03-15] MEDS ORDERED: FLU VACC QS2022-23(65YR UP)/PF 240 MCG/0.7 ML SYRINGE IM ONE (09:00)
[2022-03-15] MEDS ORDERED: Enoxaparin Sodium 30 MG/0.3 ML SYRINGE SC SCH (09:00)
[2022-03-15] MEDS ORDERED: Enoxaparin Sodium 40 MG/0.4 ML SYRINGE SC SCH (09:00)
[2022-03-15] MEDS: Atorvastatin Calcium 40 MG TAB PO SCH (19:53)
[2022-03-16 03:32] LABS: #Eosinphils 0.1 10x3/uL (0.0-0.5); #Monocytes 0.4 10x3/uL (0.0-1.1); #Neutrophils 2.3 10x3/uL (1.5-8.4); %Basophils 0.5 % (0.0-2.0); %Eosinophils 1.3 % (0.0-6.0); %Lymphocytes 27.4 % (18.0-47.0); %Monocytes 10.8 % (0.0-10.0); %Neutrophils 59.7 % (40.0-75.0); Hemoglobin 11.6 g/dL (13.5-17.5); Mean Corpuscular HGB CONC 32.9 g/dL (32.0-36.0); Mean Corpuscular Hemoglobin 32.6 pg (27.0-33.0); Mean Corpuscular Volume 99.2 fl (81.2-95.1); Mean Platelet Volume 10.1 fl (7.4-10.4); Platelet Count 215 10x3/uL (150-450); RBC Distribution Width 13.7 % (11.5-14.5); Red Blood Cell (RBC) Count 3.56 10x6/uL (4.32-5.72); White Blood Cell (WBC) Count 3.8 10x3/uL (3.5-10.5)
[2022-03-16 03:53] LABS: ALT (SGPT) 25 U/L (8-55); AST (SGOT) 34 U/L (5-34); Albumin 3.1 g/dL (3.4-4.8); Alkaline Phosphatase 75 U/L (40-110); Anion Gap 9 mmol/L (10-20); BUN (Urea Nitrogen) 23 mg/dL (8.4-25.7); Bilirubin, Total 0.5 mg/dL (0.2-1.2); Calc. Creatinine Clearance 55 mL/min (70-130); Calcium 9.8 mg/dL (7.8-10.44); Carbon Dioxide 29 mmol/L (23-31); Chloride 108 mmol/L (98-107); Estimated GFR 85; Globulin 3.8 g/dL (2.4-3.5); Glucose 66 mg/dL (83-110); Potassium 4.2 mmol/L (3.5-5.1); Protein, Total 6.9 g/dL (5.8-8.1); Sodium 142 mmol/L (136-145)
[2022-03-16] MEDS: Aspirin Chewable 81 MG TAB PO SCH ×2 (08:38→09:13)
[2022-03-16] MEDS: Amlodipine 5 MG TAB PO SCH ×2 (08:38→09:13)
[2022-03-16] MEDS: Enoxaparin Sodium 40 MG/0.4 ML SYRINGE SC SCH (08:38)
[2022-03-16] MEDS: Atorvastatin Calcium 40 MG TAB PO SCH (21:57)
[2022-03-17 10:17] LABS: #Eosinphils 0.1 10x3/uL (0.0-0.5); #Monocytes 0.6 10x3/uL (0.0-1.1); #Neutrophils 2.4 10x3/uL (1.5-8.4); %Basophils 0.7 % (0.0-2.0); %Eosinophils 1.8 % (0.0-6.0); %Lymphocytes 29.5 % (18.0-47.0); %Monocytes 13.6 % (0.0-10.0); %Neutrophils 54.2 % (40.0-75.0); Hemoglobin 10.9 g/dL (13.5-17.5); Mean Corpuscular HGB CONC 33.3 g/dL (32.0-36.0); Mean Corpuscular Hemoglobin 32.8 pg (27.0-33.0); Mean Corpuscular Volume 98.5 fl (81.2-95.1); Mean Platelet Volume 10.2 fl (7.4-10.4); Platelet Count 221 10x3/uL (150-450); RBC Distribution Width 13.6 % (11.5-14.5); Red Blood Cell (RBC) Count 3.32 10x6/uL (4.32-5.72); White Blood Cell (WBC) Count 4.3 10x3/uL (3.5-10.5)
[2022-03-17 10:29] LABS: ALT (SGPT) 18 U/L (8-55); AST (SGOT) 34 U/L (5-34); Albumin 3.2 g/dL (3.4-4.8); Alkaline Phosphatase 81 U/L (40-110); Anion Gap 12 mmol/L (10-20); BUN (Urea Nitrogen) 18 mg/dL (8.4-25.7); Bilirubin, Total 0.5 mg/dL (0.2-1.2); Calc. Creatinine Clearance 50 mL/min (70-130); Calcium 10.1 mg/dL (7.8-10.44); Carbon Dioxide 29 mmol/L (23-31); Chloride 110 mmol/L (98-107); Estimated GFR 81; Globulin 3.8 g/dL (2.4-3.5); Glucose 77 mg/dL (83-110); Potassium 4.9 mmol/L (3.5-5.1); Sodium 146 mmol/L (136-145)
[2022-03-17] MEDS: Aspirin Chewable 81 MG TAB PO SCH (10:43)
[2022-03-17] MEDS: Enoxaparin Sodium 40 MG/0.4 ML SYRINGE SC SCH (10:43)
[2022-03-17] MEDS: Amlodipine 5 MG TAB PO SCH (10:45)
[2022-03-17] MEDS: Lorazepam 2 MG/ML VIAL SLOW IVP PRN (20:00)
[2022-03-17] MEDS: Atorvastatin Calcium 40 MG TAB PO SCH (22:00)
[2022-03-18 07:42] LABS: Hemoglobin 11.7 g/dL (13.5-17.5); Mean Corpuscular HGB CONC 34.5 g/dL (32.0-36.0); Mean Corpuscular Hemoglobin 33.1 pg (27.0-33.0); Mean Corpuscular Volume 95.8 fl (81.2-95.1); Mean Platelet Volume 10.5 fl (7.4-10.4); Platelet Count 171 10x3/uL (150-450); RBC Distribution Width 13.6 % (11.5-14.5); Red Blood Cell (RBC) Count 3.54 10x6/uL (4.32-5.72); White Blood Cell (WBC) Count 4.4 10x3/uL (3.5-10.5)
[2022-03-18 07:44] LABS: MDiff Complete? YES
[2022-03-18 08:38] LABS: Eosinophils 3 % (0-10); Lymphocytes 39 % (21-51); Monocytes 11 % (0-10); Neutrophil 47 % (42-75); Platelet Morphology Comment Appears Adequate
[2022-03-18 08:39] LABS: RBC Morphology Normal
[2022-03-18] MEDS: Aspirin Chewable 81 MG TAB PO SCH (09:56)
[2022-03-18] MEDS: Amlodipine 5 MG TAB PO SCH (09:56)
[2022-03-18] MEDS: Enoxaparin Sodium 40 MG/0.4 ML SYRINGE SC SCH (09:56)
[2022-03-18 12:42] LABS: ALT (SGPT) 18 U/L (8-55); AST (SGOT) 39 U/L (5-34); Albumin 3.3 g/dL (3.4-4.8); Alkaline Phosphatase 84 U/L (40-110); Anion Gap 15 mmol/L (10-20); BUN (Urea Nitrogen) 14 mg/dL (8.4-25.7); Bilirubin, Total 0.5 mg/dL (0.2-1.2); Calc. Creatinine Clearance 55 mL/min (70-130); Calcium 9.6 mg/dL (7.8-10.44); Carbon Dioxide 25 mmol/L (23-31); Chloride 110 mmol/L (98-107); Estimated GFR 85; Globulin 3.5 g/dL (2.4-3.5); Glucose 75 mg/dL (83-110); Potassium 4.5 mmol/L (3.5-5.1); Protein, Total 6.8 g/dL (5.8-8.1); Sodium 145 mmol/L (136-145)
[2022-03-18] MEDS: Atorvastatin Calcium 40 MG TAB PO SCH (23:02)
[2022-03-19 04:38] LABS: #Monocytes 0.5 10x3/uL (0.0-1.1); #Neutrophils 6.3 10x3/uL (1.5-8.4); %Basophils 0.3 % (0.0-2.0); %Eosinophils 0.4 % (0.0-6.0); %Lymphocytes 11.7 % (18.0-47.0); %Monocytes 6.2 % (0.0-10.0); %Neutrophils 81.1 % (40.0-75.0); Hemoglobin 11.3 g/dL (13.5-17.5); Mean Corpuscular HGB CONC 34.2 g/dL (32.0-36.0); Mean Corpuscular Hemoglobin 33.1 pg (27.0-33.0); Mean Corpuscular Volume 96.8 fl (81.2-95.1); Mean Platelet Volume 10.1 fl (7.4-10.4); Platelet Count 197 10x3/uL (150-450); RBC Distribution Width 13.5 % (11.5-14.5); Red Blood Cell (RBC) Count 3.41 10x6/uL (4.32-5.72); White Blood Cell (WBC) Count 7.8 10x3/uL (3.5-10.5)
[2022-03-19 04:48] LABS: ALT (SGPT) 23 U/L (8-55); AST (SGOT) 50 U/L (5-34); Albumin 3.4 g/dL (3.4-4.8); Alkaline Phosphatase 86 U/L (40-110); Anion Gap 13 mmol/L (10-20); BUN (Urea Nitrogen) 12 mg/dL (8.4-25.7); Bilirubin, Total 0.5 mg/dL (0.2-1.2); Calc. Creatinine Clearance 56 mL/min (70-130); Calcium 10.1 mg/dL (7.8-10.44); Carbon Dioxide 25 mmol/L (23-31); Chloride 108 mmol/L (98-107); Estimated GFR 86; Globulin 4.1 g/dL (2.4-3.5); Glucose 79 mg/dL (83-110); Protein, Total 7.5 g/dL (5.8-8.1); Sodium 142 mmol/L (136-145)
[2022-03-19] MEDS: Aspirin Chewable 81 MG TAB PO SCH (10:04)
[2022-03-19] MEDS: Enoxaparin Sodium 40 MG/0.4 ML SYRINGE SC SCH (10:04)
[2022-03-19] MEDS: Amlodipine 5 MG TAB PO SCH (10:05)
[2022-03-19] MEDS ORDERED: hydrALAZINE 25 MG TAB PO SCH (15:00)
[2022-03-19] MEDS: Dorzolamide HCl 2% Ophth Soln 10 ml Bottle EA EYE SCH (15:22)
[2022-03-19] MEDS: Brimonidine Tartrate 0.2% Ophth Soln 5 ml Bottle EA EYE SCH (15:22)
[2022-03-19] MEDS: Ferrous Sulfate 325 MG TAB PO SCH (17:35)
[2022-03-20] MEDS: Atorvastatin Calcium 40 MG TAB PO SCH ×2 (02:38→21:35)
[2022-03-20] MEDS: Brimonidine Tartrate 0.2% Ophth Soln 5 ml Bottle EA EYE SCH ×4 (02:38→21:35)
[2022-03-20] MEDS: Divalproex Sodium 125 mg Sprinkle Capsule PO SCH ×3 (02:40→21:34)
[2022-03-20] MEDS: Dorzolamide HCl 2% Ophth Soln 10 ml Bottle EA EYE SCH ×4 (02:40→21:35)
[2022-03-20] MEDS: Terazosin HCl 5 MG CAP PO SCH ×2 (02:41→21:35)
[2022-03-20] MEDS: Timolol 0.5% Ophth Soln 5 ml Bottle EA EYE SCH ×3 (02:50→21:36)
[2022-03-20] MEDS: Docusate 100 MG CAP PO SCH ×3 (02:51→21:52)
[2022-03-20 06:36] LABS: #Eosinphils 0.1 10x3/uL (0.0-0.5); #Monocytes 0.5 10x3/uL (0.0-1.1); #Neutrophils 2.7 10x3/uL (1.5-8.4); %Basophils 0.4 % (0.0-2.0); %Eosinophils 1.2 % (0.0-6.0); %Lymphocytes 31.8 % (18.0-47.0); %Monocytes 10.7 % (0.0-10.0); %Neutrophils 55.7 % (40.0-75.0); Hemoglobin 10.6 g/dL (13.5-17.5); Mean Corpuscular Hemoglobin 32.7 pg (27.0-33.0); Mean Corpuscular Volume 96.3 fl (81.2-95.1); Mean Platelet Volume 10.6 fl (7.4-10.4); Platelet Count 203 10x3/uL (150-450); RBC Distribution Width 13.7 % (11.5-14.5); Red Blood Cell (RBC) Count 3.24 10x6/uL (4.32-5.72); White Blood Cell (WBC) Count 4.9 10x3/uL (3.5-10.5)
[2022-03-20 06:57] LABS: ALT (SGPT) 22 U/L (8-55); AST (SGOT) 41 U/L (5-34); Albumin 3.3 g/dL (3.4-4.8); Alkaline Phosphatase 88 U/L (40-110); Anion Gap 15 mmol/L (10-20); BUN (Urea Nitrogen) 12 mg/dL (8.4-25.7); Bilirubin, Total 0.6 mg/dL (0.2-1.2); CK (CPK) 160 U/L (30-200); Calc. Creatinine Clearance 46 mL/min (70-130); Calcium 9.7 mg/dL (7.8-10.44); Carbon Dioxide 26 mmol/L (23-31); Chloride 109 mmol/L (98-107); Estimated GFR 72; Globulin 3.9 g/dL (2.4-3.5); Glucose 69 mg/dL (83-110); Magnesium 1.6 mg/dL (1.6-2.6); Potassium 3.9 mmol/L (3.5-5.1); Protein, Total 7.2 g/dL (5.8-8.1); Sodium 146 mmol/L (136-145)
[2022-03-20] MEDS ORDERED: Potassium Chloride 10 MEQ TAB PO SCH (08:00)
[2022-03-20] MEDS: Amlodipine 5 MG TAB PO SCH (08:25)
[2022-03-20] MEDS: Aspirin Chewable 81 MG TAB PO SCH (08:30)
[2022-03-20] MEDS: Ferrous Sulfate 325 MG TAB PO SCH ×2 (08:30→16:48)
[2022-03-20] MEDS: Enoxaparin Sodium 40 MG/0.4 ML SYRINGE SC SCH (08:31)
[2022-03-20] MEDS ORDERED: Losartan Potassium 50 MG TAB PO SCH (09:00)
[2022-03-20] MEDS ORDERED: HYDROCHLOROTHIAZIDE 50 MG PO SCH (09:00)
[2022-03-20] MEDS ORDERED: Furosemide 20 MG TAB PO SCH (09:00)
[2022-03-21 05:32] LABS: #Monocytes 0.6 10x3/uL (0.0-1.1); #Neutrophils 6.8 10x3/uL (1.5-8.4); %Basophils 0.3 % (0.0-2.0); %Eosinophils 0.2 % (0.0-6.0); %Lymphocytes 17.3 % (18.0-47.0); %Monocytes 6.8 % (0.0-10.0); %Neutrophils 75.2 % (40.0-75.0); Mean Corpuscular HGB CONC 33.8 g/dL (32.0-36.0); Mean Corpuscular Hemoglobin 32.8 pg (27.0-33.0); Mean Platelet Volume 10.2 fl (7.4-10.4); Platelet Count 206 10x3/uL (150-450); RBC Distribution Width 13.6 % (11.5-14.5); Red Blood Cell (RBC) Count 3.35 10x6/uL (4.32-5.72); White Blood Cell (WBC) Count 9.1 10x3/uL (3.5-10.5)
[2022-03-21 05:55] LABS: ALT (SGPT) 21 U/L (8-55); AST (SGOT) 43 U/L (5-34); Albumin 3.3 g/dL (3.4-4.8); Alkaline Phosphatase 88 U/L (40-110); Anion Gap 15 mmol/L (10-20); BUN (Urea Nitrogen) 14 mg/dL (8.4-25.7); Bilirubin, Total 0.8 mg/dL (0.2-1.2); Calc. Creatinine Clearance 35 mL/min (70-130); Calcium 10.1 mg/dL (7.8-10.44); Carbon Dioxide 26 mmol/L (23-31); Chloride 110 mmol/L (98-107); Estimated GFR 53; Globulin 4.1 g/dL (2.4-3.5); Glucose 127 mg/dL (83-110); Magnesium 1.7 mg/dL (1.6-2.6); Potassium 4.8 mmol/L (3.5-5.1); Protein, Total 7.4 g/dL (5.8-8.1); Sodium 146 mmol/L (136-145)
[2022-03-21] MEDS: Lactated Ringer's 1,000 ML IV SCH (06:46)
[2022-03-21] MEDS: Enoxaparin Sodium 40 MG/0.4 ML SYRINGE SC SCH (10:09)
[2022-03-21] MEDS: Amlodipine 5 MG TAB PO SCH (10:09)
[2022-03-21] MEDS: Aspirin Chewable 81 MG TAB PO SCH (10:09)
[2022-03-21] MEDS: Docusate 100 MG CAP PO SCH ×2 (10:10→21:53)
[2022-03-21] MEDS: Ferrous Sulfate 325 MG TAB PO SCH ×2 (10:10→17:50)
[2022-03-21] MEDS: Brimonidine Tartrate 0.2% Ophth Soln 5 ml Bottle EA EYE SCH ×3 (10:11→21:50)
[2022-03-21] MEDS: Dorzolamide HCl 2% Ophth Soln 10 ml Bottle EA EYE SCH ×3 (10:11→21:50)
[2022-03-21] MEDS: Timolol 0.5% Ophth Soln 5 ml Bottle EA EYE SCH (10:11)
[2022-03-21] MEDS: Divalproex Sodium 125 mg Sprinkle Capsule PO SCH ×2 (12:04→21:50)
[2022-03-21] MEDS: Atorvastatin Calcium 40 MG TAB PO SCH (21:52)
[2022-03-21] MEDS: Terazosin HCl 5 MG CAP PO SCH (21:53)
[2022-03-22] MEDS: Timolol 0.5% Ophth Soln 5 ml Bottle EA EYE SCH ×3 (01:09→21:37)
[2022-03-22] MEDS: Lactated Ringer's 1,000 ML IV SCH (05:50)
[2022-03-22] MEDS: Ferrous Sulfate 325 MG TAB PO SCH ×2 (09:45→19:53)
[2022-03-22] MEDS: Brimonidine Tartrate 0.2% Ophth Soln 5 ml Bottle EA EYE SCH ×3 (09:47→21:36)
[2022-03-22] MEDS: Enoxaparin Sodium 40 MG/0.4 ML SYRINGE SC SCH (09:47)
[2022-03-22] MEDS: Dorzolamide HCl 2% Ophth Soln 10 ml Bottle EA EYE SCH ×3 (09:47→21:37)
[2022-03-22] MEDS: Docusate 100 MG CAP PO SCH ×2 (09:47→21:37)
[2022-03-22] MEDS: Amlodipine 5 MG TAB PO SCH (09:47)
[2022-03-22] MEDS: Aspirin Chewable 81 MG TAB PO SCH (09:47)
[2022-03-22] MEDS: Divalproex Sodium 125 mg Sprinkle Capsule PO SCH ×2 (09:47→21:37)
[2022-03-22 13:37] LABS: #Eosinphils 0.1 10x3/uL (0.0-0.5); #Monocytes 0.4 10x3/uL (0.0-1.1); #Neutrophils 2.5 10x3/uL (1.5-8.4); %Basophils 0.5 % (0.0-2.0); %Eosinophils 3.2 % (0.0-6.0); %Lymphocytes 27.3 % (18.0-47.0); %Neutrophils 59.8 % (40.0-75.0); Hemoglobin 10.2 g/dL (13.5-17.5); Mean Corpuscular HGB CONC 33.4 g/dL (32.0-36.0); Mean Corpuscular Volume 98.7 fl (81.2-95.1); Mean Platelet Volume 10.5 fl (7.4-10.4); Platelet Count 170 10x3/uL (150-450); RBC Distribution Width 13.5 % (11.5-14.5); Red Blood Cell (RBC) Count 3.09 10x6/uL (4.32-5.72); White Blood Cell (WBC) Count 4.1 10x3/uL (3.5-10.5)
[2022-03-22 13:59] LABS: ALT (SGPT) 18 U/L (8-55); AST (SGOT) 36 U/L (5-34); Alkaline Phosphatase 79 U/L (40-110); Anion Gap 12 mmol/L (10-20); BUN (Urea Nitrogen) 16 mg/dL (8.4-25.7); Bilirubin, Total 0.5 mg/dL (0.2-1.2); Calc. Creatinine Clearance 52 mL/min (70-130); Calcium 9.7 mg/dL (7.8-10.44); Carbon Dioxide 28 mmol/L (23-31); Chloride 110 mmol/L (98-107); Estimated GFR 83; Globulin 3.8 g/dL (2.4-3.5); Glucose 124 mg/dL (83-110); Magnesium 1.8 mg/dL (1.6-2.6); Potassium 4.5 mmol/L (3.5-5.1); Protein, Total 6.8 g/dL (5.8-8.1); Sodium 145 mmol/L (136-145)
[2022-03-22] MEDS: Atorvastatin Calcium 40 MG TAB PO SCH (21:36)
[2022-03-22] MEDS: Terazosin HCl 5 MG CAP PO SCH (21:37)
[2022-03-23 06:29] LABS: #Eosinphils 0.1 10x3/uL (0.0-0.5); #Monocytes 0.4 10x3/uL (0.0-1.1); #Neutrophils 2.7 10x3/uL (1.5-8.4); %Basophils 0.4 % (0.0-2.0); %Eosinophils 2.3 % (0.0-6.0); %Lymphocytes 31.3 % (18.0-47.0); %Monocytes 9.2 % (0.0-10.0); %Neutrophils 56.6 % (40.0-75.0); Hemoglobin 10.9 g/dL (13.5-17.5); Mean Corpuscular HGB CONC 33.7 g/dL (32.0-36.0); Mean Corpuscular Hemoglobin 32.8 pg (27.0-33.0); Mean Corpuscular Volume 97.3 fl (81.2-95.1); Mean Platelet Volume 10.2 fl (7.4-10.4); Platelet Count 187 10x3/uL (150-450); RBC Distribution Width 13.5 % (11.5-14.5); Red Blood Cell (RBC) Count 3.32 10x6/uL (4.32-5.72); White Blood Cell (WBC) Count 4.8 10x3/uL (3.5-10.5)
[2022-03-23 06:50] LABS: ALT (SGPT) 22 U/L (8-55); AST (SGOT) 42 U/L (5-34); Albumin 3.2 g/dL (3.4-4.8); Alkaline Phosphatase 89 U/L (40-110); Anion Gap 13 mmol/L (10-20); BUN (Urea Nitrogen) 15 mg/dL (8.4-25.7); Bilirubin, Total 0.5 mg/dL (0.2-1.2); Calc. Creatinine Clearance 57 mL/min (70-130); Calcium 9.9 mg/dL (7.8-10.44); Carbon Dioxide 27 mmol/L (23-31); Chloride 111 mmol/L (98-107); Estimated GFR 86; Globulin 4.1 g/dL (2.4-3.5); Glucose 84 mg/dL (83-110); Magnesium 1.8 mg/dL (1.6-2.6); Potassium 4.6 mmol/L (3.5-5.1); Protein, Total 7.3 g/dL (5.8-8.1); Sodium 146 mmol/L (136-145)
[2022-03-23] MEDS: Enoxaparin Sodium 40 MG/0.4 ML SYRINGE SC SCH (08:32)
[2022-03-23] MEDS: Timolol 0.5% Ophth Soln 5 ml Bottle EA EYE SCH ×2 (08:33→21:58)
[2022-03-23] MEDS: Aspirin Chewable 81 MG TAB PO SCH (08:33)
[2022-03-23] MEDS: Amlodipine 5 MG TAB PO SCH (08:34)
[2022-03-23] MEDS: Docusate 100 MG CAP PO SCH ×2 (08:34→21:49)
[2022-03-23] MEDS: Divalproex Sodium 125 mg Sprinkle Capsule PO SCH ×2 (08:35→21:59)
[2022-03-23] MEDS: Ferrous Sulfate 325 MG TAB PO SCH ×2 (09:00→18:48)
[2022-03-23] MEDS: Dorzolamide HCl 2% Ophth Soln 10 ml Bottle EA EYE SCH ×3 (10:47→21:57)
[2022-03-23] MEDS: Brimonidine Tartrate 0.2% Ophth Soln 5 ml Bottle EA EYE SCH ×3 (10:47→22:00)
[2022-03-23] MEDS: Atorvastatin Calcium 40 MG TAB PO SCH (21:49)
[2022-03-23] MEDS: Terazosin HCl 5 MG CAP PO SCH (21:49)
[2022-03-24 05:51] LABS: ALT (SGPT) 21 U/L (8-55); AST (SGOT) 40 U/L (5-34); Albumin 3.4 g/dL (3.4-4.8); Alkaline Phosphatase 94 U/L (40-110); Anion Gap 15 mmol/L (10-20); BUN (Urea Nitrogen) 16 mg/dL (8.4-25.7); Bilirubin, Total 0.6 mg/dL (0.2-1.2); Calc. Creatinine Clearance 53 mL/min (70-130); Calcium 10.1 mg/dL (7.8-10.44); Carbon Dioxide 27 mmol/L (23-31); Chloride 111 mmol/L (98-107); Estimated GFR 84; Globulin 4.4 g/dL (2.4-3.5); Glucose 77 mg/dL (83-110); Magnesium 1.9 mg/dL (1.6-2.6); Potassium 4.7 mmol/L (3.5-5.1); Protein, Total 7.8 g/dL (5.8-8.1); Sodium 148 mmol/L (136-145)
[2022-03-24] MEDS: Docusate 100 MG CAP PO SCH ×2 (12:23→21:24)
[2022-03-24] MEDS: Enoxaparin Sodium 40 MG/0.4 ML SYRINGE SC SCH (12:23)
[2022-03-24] MEDS: Divalproex Sodium 125 mg Sprinkle Capsule PO SCH ×2 (12:23→21:27)
[2022-03-24] MEDS: Amlodipine 5 MG TAB PO SCH (12:23)
[2022-03-24] MEDS: Ferrous Sulfate 325 MG TAB PO SCH ×2 (12:23→17:14)
[2022-03-24] MEDS: Aspirin Chewable 81 MG TAB PO SCH (12:23)
[2022-03-24] MEDS: Timolol 0.5% Ophth Soln 5 ml Bottle EA EYE SCH ×2 (12:24→21:24)
[2022-03-24] MEDS: Dorzolamide HCl 2% Ophth Soln 10 ml Bottle EA EYE SCH ×3 (12:24→21:25)
[2022-03-24] MEDS: Brimonidine Tartrate 0.2% Ophth Soln 5 ml Bottle EA EYE SCH ×3 (12:25→21:24)
[2022-03-24] MEDS: Atorvastatin Calcium 40 MG TAB PO SCH (21:23)
[2022-03-24] MEDS: Terazosin HCl 5 MG CAP PO SCH (21:23)
[2022-03-25 06:35] LABS: ALT (SGPT) 30 U/L (8-55); AST (SGOT) 57 U/L (5-34); Albumin 3.2 g/dL (3.4-4.8); Alkaline Phosphatase 90 U/L (40-110); Anion Gap 14 mmol/L (10-20); BUN (Urea Nitrogen) 19 mg/dL (8.4-25.7); Bilirubin, Total 0.5 mg/dL (0.2-1.2); Calc. Creatinine Clearance 50 mL/min (70-130); Carbon Dioxide 28 mmol/L (23-31); Chloride 112 mmol/L (98-107); Estimated GFR 81; Globulin 4.1 g/dL (2.4-3.5); Glucose 67 mg/dL (83-110); Magnesium 1.9 mg/dL (1.6-2.6); Potassium 4.9 mmol/L (3.5-5.1); Protein, Total 7.3 g/dL (5.8-8.1); Sodium 149 mmol/L (136-145)
[2022-03-25] MEDS: Enoxaparin Sodium 40 MG/0.4 ML SYRINGE SC SCH (11:13)
[2022-03-25] MEDS: Ferrous Sulfate 325 MG TAB PO SCH ×2 (11:14→17:00)
[2022-03-25] MEDS: Docusate 100 MG CAP PO SCH ×2 (11:14→22:51)
[2022-03-25] MEDS: Aspirin Chewable 81 MG TAB PO SCH (11:14)
[2022-03-25] MEDS: Amlodipine 5 MG TAB PO SCH (11:14)
[2022-03-25] MEDS: Dorzolamide HCl 2% Ophth Soln 10 ml Bottle EA EYE SCH ×3 (11:15→22:51)
[2022-03-25] MEDS: Brimonidine Tartrate 0.2% Ophth Soln 5 ml Bottle EA EYE SCH ×3 (11:15→22:51)
[2022-03-25] MEDS: Timolol 0.5% Ophth Soln 5 ml Bottle EA EYE SCH ×2 (11:16→22:52)
[2022-03-25] MEDS: Divalproex Sodium 125 mg Sprinkle Capsule PO SCH ×2 (11:19→22:50)
[2022-03-25] MEDS: Lorazepam 0.5 MG TAB PO PRN (11:40)
[2022-03-25] MEDS: Atorvastatin Calcium 40 MG TAB PO SCH (22:50)
[2022-03-25] MEDS: Terazosin HCl 5 MG CAP PO SCH (22:51)
[2022-03-26] MEDS: Lorazepam 0.5 MG TAB PO PRN (02:59)
[2022-03-26] MEDS: Dorzolamide HCl 2% Ophth Soln 10 ml Bottle EA EYE SCH ×3 (08:00→20:54)
[2022-03-26] MEDS: Brimonidine Tartrate 0.2% Ophth Soln 5 ml Bottle EA EYE SCH ×3 (09:00→20:53)
[2022-03-26 10:04] LABS: ALT (SGPT) 32 U/L (8-55); AST (SGOT) 57 U/L (5-34); Albumin 2.9 g/dL (3.4-4.8); Alkaline Phosphatase 99 U/L (40-110); Anion Gap 12 mmol/L (10-20); BUN (Urea Nitrogen) 18 mg/dL (8.4-25.7); Bilirubin, Total 0.4 mg/dL (0.2-1.2); Calc. Creatinine Clearance 54 mL/min (70-130); Calcium 9.5 mg/dL (7.8-10.44); Carbon Dioxide 26 mmol/L (23-31); Chloride 115 mmol/L (98-107); Estimated GFR 84; Globulin 3.9 g/dL (2.4-3.5); Glucose 71 mg/dL (83-110); Magnesium 1.9 mg/dL (1.6-2.6); Potassium 3.7 mmol/L (3.5-5.1); Protein, Total 6.8 g/dL (5.8-8.1); Sodium 149 mmol/L (136-145)
[2022-03-26] MEDS: Timolol 0.5% Ophth Soln 5 ml Bottle EA EYE SCH ×2 (11:06→20:54)
[2022-03-26] MEDS: Enoxaparin Sodium 40 MG/0.4 ML SYRINGE SC SCH (11:08)
[2022-03-26] MEDS: Amlodipine 5 MG TAB PO SCH (11:09)
[2022-03-26] MEDS: Aspirin Chewable 81 MG TAB PO SCH (11:09)
[2022-03-26] MEDS: Docusate 100 MG CAP PO SCH ×2 (11:09→20:53)
[2022-03-26] MEDS: Divalproex Sodium 125 mg Sprinkle Capsule PO SCH ×2 (11:09→20:56)
[2022-03-26] MEDS: Ferrous Sulfate 325 MG TAB PO SCH ×2 (11:10→16:44)
[2022-03-26] MEDS: Dextrose 5% in Water 1,000 ML IV SCH (18:55)
[2022-03-26] MEDS: Terazosin HCl 5 MG CAP PO SCH (20:53)
[2022-03-26] MEDS: Atorvastatin Calcium 40 MG TAB PO SCH (20:53)
[2022-03-27] MEDS: Dextrose 5% in Water 1,000 ML IV SCH ×2 (04:11→13:12)
[2022-03-27] MEDS: Aspirin Chewable 81 MG TAB PO SCH (08:53)
[2022-03-27] MEDS: Amlodipine 5 MG TAB PO SCH (08:53)
[2022-03-27] MEDS: Docusate 100 MG CAP PO SCH ×2 (08:54→20:40)
[2022-03-27] MEDS: Divalproex Sodium 125 mg Sprinkle Capsule PO SCH ×2 (08:54→20:40)
[2022-03-27] MEDS: Ferrous Sulfate 325 MG TAB PO SCH ×2 (08:54→17:01)
[2022-03-27] MEDS: Enoxaparin Sodium 40 MG/0.4 ML SYRINGE SC SCH (08:54)
[2022-03-27] MEDS: Brimonidine Tartrate 0.2% Ophth Soln 5 ml Bottle EA EYE SCH ×3 (08:56→20:40)
[2022-03-27] MEDS: Timolol 0.5% Ophth Soln 5 ml Bottle EA EYE SCH ×2 (08:57→20:41)
[2022-03-27] MEDS: Dorzolamide HCl 2% Ophth Soln 10 ml Bottle EA EYE SCH ×3 (08:57→20:40)
[2022-03-27] MEDS ORDERED: Dextrose 5% in Water 1,000 ML IV SCH (16:36)
[2022-03-27] MEDS: Atorvastatin Calcium 40 MG TAB PO SCH (20:40)
[2022-03-27] MEDS: Terazosin HCl 5 MG CAP PO SCH (20:41)
[2022-03-27] MEDS ORDERED: Lactated Ringer's 1,000 ML IV SCH ×2 (22:00→22:30)
[2022-03-27 22:11] LABS: ALV-art Gradient 177.325 mmHg (0-20); Actual Bicarbonate (HCO3a) 19.8 mEq/L (22-28); Base Excess (BEa) -4.8 mEq/L (-2.0 to +3.0); CO2 Tension 34.7 mmHg (35.0-45.0); Carboxyhemoglobin (COHb) 0.2 gm% (0.0-3.0); Critical Notified By: CP.PH; Hemoglobin (Hb) 9.6 g/dL (14.0-18.0); O2 Tension (PaO2), arterial 207.1 mmHg (> 60.0); Potassium - ABG Lab 3.2 mmol/L (3.70-5.30); Puncture Site RRA; RapidComm Collect By CP.JL; pH, Arterial 7.38 (7.35-7.45)
[2022-03-27] MEDS ORDERED: Magnesium 2 GM/50 ML(in water) 2 GM in Premix Bag 1 BAG IVPB SCH (22:30)
[2022-03-27 22:58] LABS: Hemoglobin 9.3 g/dL (13.5-17.5); Mean Corpuscular Hemoglobin 32.5 pg (27.0-33.0); Mean Corpuscular Volume 98.6 fl (81.2-95.1); Mean Platelet Volume 10.5 fl (7.4-10.4); Platelet Count 101 10x3/uL (150-450); RBC Distribution Width 13.8 % (11.5-14.5); Red Blood Cell (RBC) Count 2.86 10x6/uL (4.32-5.72); White Blood Cell (WBC) Count 1.6 10x3/uL (3.5-10.5)
[2022-03-27 23:07] LABS: ALT (SGPT) 38 U/L (8-55); AST (SGOT) 75 U/L (5-34); Albumin 2.6 g/dL (3.4-4.8); Alkaline Phosphatase 84 U/L (40-110); Anion Gap 12 mmol/L (10-20); BUN (Urea Nitrogen) 17 mg/dL (8.4-25.7); Calc. Creatinine Clearance 54 mL/min (70-130); Calcium 8.8 mg/dL (7.8-10.44); Carbon Dioxide 23 mmol/L (23-31); Chloride 110 mmol/L (98-107); Estimated GFR 85; Globulin 3.2 g/dL (2.4-3.5); Glucose 125 mg/dL (83-110); Magnesium 1.6 mg/dL (1.6-2.6); Potassium 3.8 mmol/L (3.5-5.1); Protein, Total 5.8 g/dL (5.8-8.1); Sodium 141 mmol/L (136-145)
[2022-03-27 23:15] LABS: MDiff Complete? YES
[2022-03-27 23:25] LABS: Band 19 % (5-11); Eosinophils 2 % (0-10); Lymphocytes 18 % (21-51); Monocytes 3 % (0-10); Neutrophil 57 % (42-75); Nucleated RBC 7 % (0); Reactive Lymphocytes 1 % (0-10)
[2022-03-27 23:27] LABS: Platelet Morphology Comment Appears Decreased; Reflex for Review?? YES; Vacuoles MODERATE
[2022-03-27 23:28] LABS: Free T4 (Free Thyroxine) 0.76 ng/dL (0.70-1.48); RBC Morphology Normal; Thyroid Stimulating Hormone 2.9449 uIU/mL (0.35-4.94)
[2022-03-27 23:40] LABS: CKMB 20.8 ng/mL (0-6.6)
[2022-03-27] MEDS: Dextrose 5%-Lactated Ringers 1,000 ML IV SCH (23:58)
[2022-03-28] MEDS ORDERED: Enoxaparin Sodium 60 MG/0.6 ML SYRINGE SC SCH (00:15)
[2022-03-28] MEDS: Piperacillin/Tazobactam 3.375 GM in Sodium Chloride 0.9% 100 ML IVPB SCH ×3 (00:45→16:17)
[2022-03-28] MEDS: EPINEPHrine 4 MG in Dextrose 5% in Water 250 ML IV SCH ×4 (01:50→15:06)
[2022-03-28] MEDS ORDERED: Morphine 2 MG/ML VIAL SLOW IVP SCH (02:00)
[2022-03-28] MEDS: DOPamine 400 MG/D5W 250 ML 250 ML IVPB SCH ×3 (03:19→16:33)
[2022-03-28 04:07] LABS: Hemoglobin 8.9 g/dL (13.5-17.5); Mean Corpuscular HGB CONC 32.5 g/dL (32.0-36.0); Mean Corpuscular Hemoglobin 32.6 pg (27.0-33.0); Mean Corpuscular Volume 100.4 fl (81.2-95.1); Mean Platelet Volume 11.3 fl (7.4-10.4); Platelet Count 77 10x3/uL (150-450); RBC Distribution Width 13.8 % (11.5-14.5); Red Blood Cell (RBC) Count 2.73 10x6/uL (4.32-5.72); White Blood Cell (WBC) Count 1.8 10x3/uL (3.5-10.5)
[2022-03-28 04:23] LABS: Anion Gap 19 mmol/L (10-20); BUN (Urea Nitrogen) 18 mg/dL (8.4-25.7); Calc. Creatinine Clearance 43 mL/min (70-130); Calcium 8.7 mg/dL (7.8-10.44); Carbon Dioxide 17 mmol/L (23-31); Chloride 108 mmol/L (98-107); Estimated GFR 67; Glucose 147 mg/dL (83-110); Magnesium 2.1 mg/dL (1.6-2.6); Potassium 3.6 mmol/L (3.5-5.1); Sodium 140 mmol/L (136-145)
[2022-03-28 04:31] LABS: MDiff Complete? YES
[2022-03-28 04:39] LABS: Band 28 % (5-11); Eosinophils 2 % (0-10); Lymphocytes 8 % (21-51); Metamyelocyte 6 % (0-0); Monocytes 2 % (0-10); Myelocyte 1 % (0-0); Neutrophil 53 % (42-75); Nucleated RBC 10 % (0)
[2022-03-28 04:40] LABS: Platelet Morphology Comment Appears Decreased; RBC Morphology Normal; Toxic Granulation SLIGHT; Vacuoles MODERATE
[2022-03-28 04:54] LABS: CKMB 24.1 ng/mL (0-6.6)
[2022-03-28] MEDS ORDERED: EPINEPHrine 1 MG/10 ML Abboject SYRINGE ONE (07:00)
[2022-03-28] MEDS ORDERED: Atropine Sulfate 1 mg/10 ml Syringe ONE (07:00)
[2022-03-28 08:04] VITALS: BMI 21.4
[2022-03-28] MEDS: Dextrose 5%-Lactated Ringers 1,000 ML IV SCH (09:03)
[2022-03-28] MEDS ORDERED: Sodium Chloride 0.9% 1,000 ML IV SCH (10:00)
[2022-03-28 11:46] LABS: Bilirubin Neg (Negative); Blood, Urine 250 (Negative); Clarity Cloudy (Clear); Glucose, Urine (Dipstick) Normal (Negative); Ketone, Urine Negative (Negative); Leukocyte 500 (Negative); Nitrite Negative (Negative); Protein, Urine (Dipstick) 30 mg/dl (Neg-Trace)
[2022-03-28 11:47] LABS: Urine Culture Reflex No No
[2022-03-28] MEDS: Ferrous Sulfate 325 MG TAB PO SCH ×2 (11:51→17:28)
[2022-03-28] MEDS: Docusate 100 MG CAP PO SCH (11:53)
[2022-03-28] MEDS: Divalproex Sodium 125 mg Sprinkle Capsule PO SCH (11:53)
[2022-03-28] MEDS: Aspirin Chewable 81 MG TAB PO SCH (11:53)
[2022-03-28 11:56] LABS: RBC/HPF 21-50 HPF (0-3); Squamous Epithelial 0-3 HPF (0-3)
[2022-03-28 11:57] LABS: Bacteria/HPF 2+ HPF (None Seen)
[2022-03-28] MEDS: Brimonidine Tartrate 0.2% Ophth Soln 5 ml Bottle EA EYE SCH ×2 (15:02→15:04)
[2022-03-28] MEDS: Timolol 0.5% Ophth Soln 5 ml Bottle EA EYE SCH (15:03)
[2022-03-28] MEDS: Dorzolamide HCl 2% Ophth Soln 10 ml Bottle EA EYE SCH ×2 (15:03→15:04)
[2022-03-28 18:15] VITALS: BP 80/41; TEMP 98.3
== END 2022-03-28 18:29 | disposition hospice, inpatient (51) | DRG 884 ==
LOC: CSHERS 06:51 → INTOOBSV 14:18 → CSHIMCU 14:18 → OBSVTOIN 03-16 12:32 → CSHTELE 03-16 13:21 → CSHIMCU 03-27 22:24
PROVIDERS: ADMIT Internal Medicine; ATTEND Family Medicine
PROC: 8E0ZXY6 Isolation (ICD-10-PCS; principal; 2022-03-16)
PROC: 3E033XZ Introduction of Vasopressor into Peripheral Vein, Percutaneous Approach (ICD-10-PCS; 2022-03-27)
DX: F03.918 Unspecified dementia, unspecified severity, with other behavioral disturbance (principal); U07.1 COVID-19; G93.41 Metabolic encephalopathy; N17.9 Acute kidney failure, unspecified; Z51.5 Encounter for palliative care; Z66 Do not resuscitate; E87.0 Hyperosmolality and hypernatremia; I25.10 Atherosclerotic heart disease of native coronary artery without angina pectoris; N18.9 Chronic kidney disease, unspecified; N40.0 Benign prostatic hyperplasia without lower urinary tract symptoms; I12.9 Hypertensive chronic kidney disease with stage 1 through stage 4 chronic kidney disease, or unspecified chronic kidney disease; M19.90 Unspecified osteoarthritis, unspecified site; F20.9 Schizophrenia, unspecified; F31.9 Bipolar disorder, unspecified; D53.9 Nutritional anemia, unspecified; R62.7 Adult failure to thrive; I95.89 Other hypotension; Z79.899 Other long term (current) drug therapy; Z68.21 Body mass index [BMI] 21.0-21.9, adult; Z78.1 Physical restraint status
CPT/HCPCS: 36415; 36416; 36600; 70450; 71045; 80048; 80053; 80061; 80307; 81001; 82550; 82553; 82805; 83735; 84439; 84443; 84484; 85025; 85060; 87040; 87081; 87086; 93005; 93010; 94760; 96372; 97139; G0378; J0171; J0461; J1265; J1650; J2060; J2270; J2543; J3360; J3475; J3486; J3490; J7050; J7070; J7120; U0002

== ENCOUNTER 2022-03-28 18:36 | Inpatient (IN) | payer OTHER ==
[2022-03-28] MEDS ORDERED: Morphine 2 MG/ML VIAL SLOW IVP PRN (19:10)
[2022-03-28] MEDS ORDERED: Midazolam HCl 5 mg/ml Vial SLOW IVP PRN (19:13)
[2022-03-28] MEDS ORDERED: Haloperidol Lactate 5 MG/ML VIAL SLOW IVP PRN (19:15)
[2022-03-28] MEDS ORDERED: Acetaminophen 650 MG Suppository PR PRN (19:15)
[2022-03-28] MEDS ORDERED: Scopolamine 1.5 mg/72 hour Patch TOP PRN (19:15)
[2022-03-28] MEDS ORDERED: Promethazine HCl 25 MG SUPP PR PRN (19:15)
[2022-03-28] MEDS ORDERED: Bisacodyl 10 MG SUPP PR PRN (19:15)
[2022-03-28] MEDS ORDERED: diphenhydrAMINE 50 MG/ML VIAL IVP PRN (19:15)
[2022-03-28] MEDS ORDERED: Ondansetron PF 4 MG/2 ML Vial IVP PRN (19:15)
[2022-03-28 19:37] VITALS: BMI 21.4
[2022-03-28 20:28] VITALS: BP 88/45
[2022-03-28] MEDS ORDERED: Midazolam HCl 2 mg/2 ml Vial SLOW IVP PRN (20:34)
[2022-03-28] MEDS: Morphine 2 MG/ML VIAL SLOW IVP PRN ×2 (20:49→21:18)
== END 2022-03-29 00:55 | disposition expired | DRG 951 ==
LOC: CSHIMCU 18:36
PROVIDERS: ADMIT Family Medicine; ATTEND Family Medicine
DX: Z51.5 Encounter for palliative care (principal); G93.41 Metabolic encephalopathy; N17.9 Acute kidney failure, unspecified; E87.0 Hyperosmolality and hypernatremia; F03.90 Unspecified dementia, unspecified severity, without behavioral disturbance, psychotic disturbance, mood disturbance, and anxiety; I25.10 Atherosclerotic heart disease of native coronary artery without angina pectoris
CPT/HCPCS: 94760; J2270